=== PATIENT | male | born 1935 | race Caucasian/White ===

== ENCOUNTER 2021-02-08 15:16 | Inpatient (IN) | payer OTHER ==
[~2021-02-08] VITALS: Ht 172.7 cm; Wt 72.6 kg
[2021-02-08] MEDS ORDERED: CILOSTAZOL100 MG PO (15:34)
[2021-02-08] MEDS ORDERED: RANEXA500 MG PO (15:36)
[2021-02-08] MEDS ORDERED: AVAPRO300 MG PO (15:36)
[2021-02-08] MEDS ORDERED: SIMVASTATIN5 MG PO (15:36)
[2021-02-08] MEDS ORDERED: BRILINTA90 MG PO (15:37)
[2021-02-08] MEDS ORDERED: ISOSORBIDE DINI30 MG PO (15:37)
== END 2021-02-22 13:18 | disposition home or self-care (01) | DRG 418 ==
LOC: ER 15:16 → MEDI 22:21 → ER 02-09 01:04 → MEDI 02-09 14:00
PROVIDERS: ADMIT Internal Medicine; ATTEND Internal Medicine
PROC: 0FT44ZZ Resection of Gallbladder, Percutaneous Endoscopic Approach (ICD-10-PCS; principal; 2021-02-09)
PROC: 0WQF4ZZ Repair Abdominal Wall, Percutaneous Endoscopic Approach (ICD-10-PCS; 2021-02-09)
PROC: 4A12X4Z Monitoring of Cardiac Electrical Activity, External Approach (ICD-10-PCS; 2021-02-09)
PROC: 3E0F7SF Introduction of Other Gas into Respiratory Tract, Via Natural or Artificial Opening (ICD-10-PCS; 2021-02-09)
DX: K85.10 Biliary acute pancreatitis without necrosis or infection (principal); N17.8 Other acute kidney failure; E87.1 Hypo-osmolality and hyponatremia; K80.12 Calculus of gallbladder with acute and chronic cholecystitis without obstruction; I65.23 Occlusion and stenosis of bilateral carotid arteries; I10 Essential (primary) hypertension; I25.10 Atherosclerotic heart disease of native coronary artery without angina pectoris; Z95.5 Presence of coronary angioplasty implant and graft; J43.9 Emphysema, unspecified; Z20.822 Contact with and (suspected) exposure to COVID-19; E87.5 Hyperkalemia; K42.9 Umbilical hernia without obstruction or gangrene